=== PATIENT | female | born 1955 | race Caucasian/White ===

== ENCOUNTER 2016-09-12 08:24 | Outpatient (CLI) | payer BC | END 2016-09-12 11:18 | LOC: D.MAMMO 08:24 | DX: Z12.31 Encounter for screening mammogram for malignant neoplasm of breast (principal) ==

== ENCOUNTER → 2018-03-26 17:24 | Outpatient (CLI) | payer BC | END | disposition home or self-care (01) | LOC: D.MAMMO 03-18 16:15 | DX: Z12.31 Encounter for screening mammogram for malignant neoplasm of breast (principal) ==